=== PATIENT | female | born 1975 | race Caucasian/White ===

== ENCOUNTER 2017-07-31 17:41 | Emergency (ER) | payer OTHER ==
[~2017-07-31] VITALS: Ht 167.6 cm; Wt 66.7 kg
[~2017-07-31 17:41] MED LIST: AUGMENTIN 875-1 EACH PO
--- NOTE | 2017-07-31 17:57 | ED GI/GU/ABDOMINAL COMPLAINT ---
History of Present Illness General Chief Complaint: Female Urogenital Problems Stated Complaint: VAG BLEED/CLOTS Source: patient Exam Limitations: no limitations Vital Signs & Intake/Output Vital Signs & Intake/Output Vital Signs Date Time Temp Pulse Resp B/P B/P Pulse O2 O2 Flow FiO2 Mean Ox Delivery Rate 07/316 97 Room Air 07/31 2044 98.1 82 16 119/77 99 Room Air 07/31 1805 99.0 96 18 140/90 97 Room Air ED Intake and Output 08/01 0000 07/31 1200 Intake Total Output Total Balance Patient 147 lb Weight Allergies Coded Allergies: NO KNOWN ALLERGIES (08/19/12) Reconcile Medications Amoxicillin/Potassium Clav (Augmentin 875-125 Tablet) 1 EACH TABLET 1 TAB PO BID URINE INFECTION Ibuprofen 800 MG TABLET 1 TAB PO TID PRN vaginal bleeding Triage Nurses Notes Reviewed? yes ? N Is pt currently ? No Onset: Gradual Duration: day(s): Timing: recent history Quality/Severity: severe HPI: 42YO FEMALE presents to ED complaining of reports heavy vaginal bleeding with passage of clots. Patient has not seen an COAL YARD SUPERVISOR for two years. LMP was one week ago and normal. Feels lightheaded beginning today, worse with ambulation. Denies pain, cramps, fevers, urinary symptoms. Took test three weeks ago which was negative. Was sexually active two weeks ago, no use of protection. Past History Medical History Any Pertinent Medical History? none Neurological: NONE EENT: NONE Cardiovascular: NONE Respiratory: NONE Gastrointestinal: NONE Hepatic: NONE Renal: NONE Musculoskeletal: NONE Psychiatric: NONE Endocrine: NONE Blood Disorders: NONE Surgical History Surgical History: non-contributory Psychosocial History What is your primary language [place] Family History Hx Contributory? No Review of Systems Review of Systems Constitutional: Reports: no symptoms. EENTM: Reports: no symptoms. Respiratory: Reports: no symptoms. Cardiovascular: Reports: no symptoms. GI: Reports: see HPI. Genitourinary: Reports: see HPI. Musculoskeletal: Reports: no symptoms. Skin: Reports: no symptoms. Neurological/Psychological: Reports: no symptoms. Hematologic/Endocrine: Reports: no symptoms. Immunologic/Allergic: Reports: no symptoms. All Other Systems: Reviewed and Negative Physical Exam Physical Exam General Appearance: well developed/nourished, no apparent distress, alert, awake Head: atraumatic, normal appearance Eyes: Bilateral: normal appearance. Ears, Nose, Throat, Mouth: hearing grossly normal Neck: normal inspection, supple, full range of motion Respiratory: normal breath sounds, no respiratory distress, lungs clear Cardiovascular: regular rate/rhythm Gastrointestinal: normal bowel sounds, soft, non-tender, no organomegaly Pelvic: moderate active vaginal bleeding Back: normal inspection, normal range of motion Extremities: normal range of motion Neurologic/Psych: awake, alert, oriented x 3 Skin: intact, normal color, warm/dry Core Measures ACS in differential dx? No Sepsis Present: No Sepsis Focused Exam Completed? No Progress Differential Diagnosis: ectopic , ovarian cyst, ovarian torsion, threatened AB, uterine fibroid, dysfunctional uterine bleeding, malignancy Plan of Care: Orders Procedure Date/time Status MISTAKE 07/31 2032 Active Add-on Test (ER Only) 07/31 1909 Active HUMAN BETA HCG SCREEN 07/31 1809 Complete PARTIAL THROMBOPLASTIN TIME 08/01 1807 Complete PROTHROMBIN TIME 08/01 1807 Complete TYPE & SCREEN (NOT X-MATCH) 08/01 1807 Complete COMPREHENSIVE METABOLIC PANEL 08/01 1755 Complete CBC WITHOUT DIFFERENTIAL 08/01 1755 Complete Laboratory Tests 07/31/171809: Anion Gap 14, Estimated GFR > 60, BUN/Creatinine Ratio 14.3, Glucose 98, Calcium 9.9, Total Bilirubin 0.6, AST 20, ALT 26, Alkaline Phosphatase 61, Total Protein 8.1, Albumin 4.6, Globulin 3.5, Albumin/Globulin Ratio 1.3, Total Beta HCG NEGATIVE, PT 12.4, INR 1.14, APTT 32, CBC w Diff NO MAN DIFF REQ, RBC 4.67, MCV 92.3, MCH 30.2, MCHC 32.7 L, RDW 13.4, MPV 8.6, Gran % 53.7, Lymphocytes % 35.5 , Monocytes % 9.0, Eosinophils % 1.0, Basophils % 0.8, Absolute Granulocytes 6.1 , Absolute Lymphocytes 4.0 H, Absolute Monocytes 1.0 H, Absolute Eosinophils 0.1, Absolute Basophils 0.1 07/31/171755: Urine Color Cancelled, Urine Clarity Cancelled, Urine pH Cancelled, Ur Specific [place] Cancelled, Urine Protein Cancelled, Urine Ketones Cancelled, Urine Nitrite Cancelled, Urine Bilirubin Cancelled, Urine Urobilinogen Cancelled, Ur Leukocyte Esterase Cancelled, Ur Microscopic Cancelled, Urine Hemoglobin Cancelled, Urine Glucose Cancelled, Urine Test Cancelled Initially patient with tachycardia upon standing, medicated with IV fluid bolus. We'll obtain a transvaginal ultrasound to assess for fibroids, mass. US is WNL. H/H stable. Spoke with Dr. Blas regaring this patient. Given patient heavy vaginal bleeding she recommends either ibuprofen 800mg TID daily or OCP taper orthocyclin 2 BID day 1, 3 day 2, two day until finished. Either option is reasonable, patient can decide between the [address] Blas will follow -up with the patient in her office. Patient elects to proceed with ibuprofen 800 mg 3 times a day. She was given strict return precautions for heavy bleeding or lightheadedness. Repeat orthostatic vital signs are stable. Patient in no acute distress, nontoxic appearing. Patient agrees with plan of care. The patient was discussed with Dr. Sosa who agrees with this plan. Diagnostic Imaging: Viewed by Me: Ultrasound. Discussed w/RAD: Ultrasound. Radiology Impression: PATIENT: DEMETRI PEREA PRESENT AGE: 42 PATIENT ACCOUNT NO: [id number] : 77 LOCATION: [facility] ORDERING PHYSICIAN: Sri PERRY SERVICE DATE: 07/31/17 EXAM TYPE: US - US-TRANSVAGINAL EXAMINATIONS: ULTRASOUND PELVIC, COMPLETE AND DOPPLER INTERROGATION CLINICAL INFORMATION: Heavy bleeding. COMPARISON: None. TECHNIQUE: Transabdominal and transvaginal imaging was performed. Transvaginal imaging was performed for further evaluation of the endometrium and adnexa. Doppler interrogation spectral analysis was performed. FINDINGS: The uterus is of normal size and echogenicity measuring 9.3 x 4.4 x 6.1 cm. A regular homogeneous endometrium is identified measuring 1.1 cm. The cervical length is 2.7 cm. Both ovaries are of normal size and echogenicity. The right measures 2.4 x 1.9 x 1.8 cm for a volume of 4.2 cc. The left measures 2.8 x 1.9 x 2.1 cm for a volume of 5.8 cc. This measurement includes an approximately 16 mm cyst. There are a a few internal echoes along with a septation. Normal arterial and venous blood flow is present bilaterally. There is no pelvic free fluid. IMPRESSION: No evidence for ovarian torsion. Normal endometrium. 16 mm left ovarian cyst. DICTATED BY: Jorge A Beltrán MD DATE/TIME DICTATED:07/31/171847 FURNACE OPERATOR OIL OR GAS:[place]ON[place] DATE/ TIME TRANSCRIBED:07/31/171847 CONFIDENTIAL, DO NOT COPY WITHOUT APPROPRIATE AUTHORIZATION. <Electronically signed in Other Vendor System> SIGNED BY: Jorge A Beltrán MD 07/31/171852 Initial ED EKG: none Departure Departure Disposition: HOME OR SELF CARE Condition: Stable Clinical Impression Primary Impression: Vaginal bleeding Referrals: Wan BUCIO,Edd Unknown Additional Instructions: Begin ibuprofen 800mg three times a day for bleeding. You were given a referral to an COAL YARD SUPERVISOR to follow-up with regarding the vaginal bleeding. You may require further testing in the office. With any worsening symptoms such as increasing vaginal bleeding, abdominal pain, feeling as though you are going to pass out, dizziness, lightheadedness please return to the emergency department. Please note that there might be incidental findings in your evaluation that are unrelated to the current emergency department visit. Please notify your primary care doctor about this emergency department visit in order to obtain and review all of the testing performed so that these incidental findings can be monitored as needed. If you had an x-ray performed, please understand that some fractures may not be seen on the initial set of x-rays. If your symptoms persist you might need a repeat set of x-rays to check for such a fracture. If you had a laceration evaluated, please understand that foreign bodies such as glass or wood may not be visible to the naked eye or on plain x-rays. If the wound becomes red, swollen, increasingly more painful or if there is any drainage from the wound, please have it reevaluated by a physician for the possibility of a retained foreign body. If you're unable to follow up as outlined in the discharge instructions please return to the emergency department. Thank you for choosing the [facility] Emergency Department for your care. It was a pleasure to serve you today. Departure Forms: Customer Survey General Discharge Information Prescriptions: Current Visit Scripts Ibuprofen 1 TAB PO TID PRN vaginal bleeding #60 TAB
[2017-07-31 18:50] LABS: PT 12.4 SEC (9.4-12.5); PTT 32 SEC (25-37)
[2017-07-31 18:52] LABS: ABSOLUTE BASOPHIL COUNT 0.1 /CUMM (0.0-0.2); ABSOLUTE EOSINOPHIL COUNT 0.1 /CUMM (0.0-0.7); ABSOLUTE GRANULOCYTE CT 6.1 /CUMM (1.4-6.5); BASOPHIL % 0.8 % (0.0-2.0); GRANULOCYTE % 53.7 % (42.2-75.2); HEMATOCRIT 43.1 % (37-47); MEAN CORPUSCULAR HGB 30.2 PG (27.0-31.0); MEAN CORPUSCULAR HGB CONC 32.7 G/DL (33.0-37.0); MEAN CORPUSCULAR VOLUME 92.3 FL (81.0-99.0); MEAN PLATELET VOLUME 8.6 FL (7.4-10.4); PLATELET COUNT 320 /CUMM (130-400); RBC DISTRIBUTION WIDTH 13.4 % (11.5-14.5); RED BLOOD CELL CT 4.67 /CUMM (4.20-5.40); WHITE BLOOD CELL COUNT 11.3 /CUMM (4.8-10.8)
--- NOTE | 2017-07-31 18:53 | ULTRASOUND REPORT ---
EXAMINATIONS: ULTRASOUND PELVIC, COMPLETE AND DOPPLER INTERROGATION CLINICAL INFORMATION: Heavy bleeding. COMPARISON: None. TECHNIQUE: Transabdominal and transvaginal imaging was performed. Transvaginal imaging was performed for further evaluation of the endometrium and adnexa. Doppler interrogation spectral analysis was performed. FINDINGS: The uterus is of normal size and echogenicity measuring 9.3 x 4.4 x 6.1 cm. A regular homogeneous endometrium is identified measuring 1.1 cm. The cervical length is 2.7 cm. Both ovaries are of normal size and echogenicity. The right measures 2.4 x 1.9 x 1.8 cm for a volume of 4.2 cc. The left measures 2.8 x 1.9 x 2.1 cm for a volume of 5.8 cc. This measurement includes an approximately 16 mm cyst. There are a a few internal echoes along with a septation. Normal arterial and venous blood flow is present bilaterally. There is no pelvic free fluid. IMPRESSION: No evidence for ovarian torsion. Normal endometrium. 16 mm left ovarian cyst.
[2017-07-31] MEDS ORDERED: IBUPROFEN800 M1 PO (20:36)
[2017-07-31 20:45] VITALS: BP 119/77
== END 2017-07-31 21:27 ==
LOC: ERH 17:41
PROVIDERS: Physician Assistant
DX: N93.9 Abnormal uterine and vaginal bleeding, unspecified (principal)
CPT/HCPCS: 81025

== ENCOUNTER 2017-09-22 09:15 | Emergency (ER) | payer SELFPAY ==
[~2017-09-22] VITALS: Ht 165.1 cm; Wt 66.7 kg
[~2017-09-22 09:15] MED LIST changes: +IBUPROFEN800 M1 PO
--- NOTE | 2017-09-22 10:27 | RADIOLOGY REPORT ---
EXAMINATION: XR CHEST CLINICAL INFORMATION: Cough. Pain. Evaluate for pneumonia. COMPARISON: 12/15/2011 TECHNIQUE: 2 views of the chest were obtained. FINDINGS: The lungs are well-inflated and clear. Trachea is midline in position. No evidence of interstitial disease, focal consolidation, mass, pneumothorax or pleural effusion. The cardiomediastinal silhouette and pulmonary puneet have normal size and contour. Bones are unremarkable. The examined upper abdomen is normal. IMPRESSION: Normal chest. No evidence of pneumonia.
[2017-09-22] MEDS ORDERED: AMOXICILLIN500 M3 PO (11:21)
[2017-09-22] MEDS ORDERED: PROAIR HFA8.5 GM INH (11:21)
[2017-09-22] MEDS ORDERED: PROMETH-CODEIN 65 ML PO (11:21)
[2017-09-22] MEDS ORDERED: PREDNISONE20 M1 PO (11:21)
[2017-09-22] MEDS ORDERED: ZITHROMAX250 M2 PO (11:23)
--- NOTE | 2017-09-22 11:26 | ED INFLUENZA/URI COMPLAINT ---
History of Present Illness General Chief Complaint: Upper Respiratory Sx/Fever Stated Complaint: URI Source: patient, old records Exam Limitations: no limitations Vital Signs & Intake/Output Vital Signs & Intake/Output Vital Signs Date Time Temp Pulse Resp B/P B/P Pulse O2 O2 Flow FiO2 Mean Ox Delivery Rate 09/22 1216 98.6 106 19 138/88 97 Room Air 09/22 1150 97 09/22 1111 Room Air 09/22 0917 98.3 83 15 132/89 96 Room Air Room Air Allergies Coded Allergies: No Known Allergies (09/22/17) Reconcile Medications Albuterol Sulfate (Proair Hfa) 90 MCG HFA.AER.AD 2 PUF INH Q4-6 PRN PRN bronchitis Amoxicillin 500 MG TABLET 1 TAB PO TID sinusitis Azithromycin (Zithromax) 250 MG TABLET 1 DP PO DAILY ANTIBIOTIC, INFECTION ( Reported) 2 the first day followed by 1 for days 2-5 Prednisone 20 MG TABLET 1 TAB PO BID sinusitis Promethazine HCl/Codeine (Prometh-Codein 6.25-10 MG/5 Ml) 6.25 MG-10 MG/5 ML (5 ML) SYRUP 5-10 ML PO Q6P PRN cough Triage Note: PT TO ED FOR C/C OF INTERMITTENT PRODUCTIVE COUGH. +NASAL CONGESTION; PT IS CURRENTLY ON Z-KRISTI (3RD DAY IN). WOULD LIKE TO BE RULED OUT OF PNA DUE TO L SIDE RIB AREA PAIN. Triage Nurses Notes Reviewed? yes Onset: 3 days Duration: day(s):, constant, continues in ED Timing: recent history Severity: moderate, severe Prior Episodes/Possible Cause: illness exposure No Modifying Factors: none Associated Symptoms: chest pain, cough, muscle aches, nasal congestion, nasal drainage, sore throat LMP (ages 10-50): unknown : No Patient currently breastfeeds: No HPI: 3 days prior to admission patient complains of nasal congestion productive cough of mucoid sputum chest discomfort. she was prescribed Zithromax and still feels sick. She denies fever chills nausea vomiting diarrhea abdominal pain shortness of breath headache dysuria rash bleeding. She reports the coughing is so bad that she cannot sleep. Past History Travel History Traveled to [place] past 21 day No Medical History Any Pertinent Medical History? none Neurological: NONE EENT: NONE Cardiovascular: NONE Respiratory: NONE Gastrointestinal: NONE Hepatic: NONE Renal: NONE Musculoskeletal: NONE Psychiatric: NONE Endocrine: NONE Blood Disorders: NONE CORPORATE TRAVEL EXPERT/Reproductive: NONE Surgical History Surgical History: non-contributory Psychosocial History What is your primary language British Tobacco Use: Current Not Daily ETOH Use: denies use Illicit Drug Use: denies illicit drug use Family History Hx Contributory? No Review of Systems Review of Systems Constitutional: Reports: see HPI, malaise. EENTM: Reports: see HPI, nasal congestion. Respiratory: Reports: see HPI, cough, sputum production. Cardiovascular: Reports: see HPI, chest pain. GI: Reports: no symptoms. Genitourinary: Reports: no symptoms. Musculoskeletal: Reports: no symptoms. Skin: Reports: no symptoms. Neurological/Psychological: Reports: no symptoms. Hematologic/Endocrine: Reports: no symptoms. Immunologic/Allergic: Reports: no symptoms. All Other Systems: Reviewed and Negative Physical Exam Physical Exam General Appearance: well developed/nourished, alert, awake, anxious, mild distress Head: atraumatic, normal appearance, tenderness (frontal sinus) Eyes: Bilateral: normal appearance, PERRL, EOMI. Ears, Nose, Throat: moist mucous membrane, nasal congestion, pharyngeal erythema Neck: normal inspection, supple, full range of motion, trachea midline, lymphadenopathy (R), lymphadenopathy (L) Respiratory: normal breath sounds, chest non-tender, no respiratory distress, quiet respiration, lungs clear Cardiovascular: regular rate/rhythm, normal peripheral pulses, norml femoral pulses equa Peripheral Pulses: 4+ carotid (R), 4+ carotid (L) Gastrointestinal: normal bowel sounds, soft, non-tender, no organomegaly Back: normal inspection, normal range of motion Extremities: normal inspection, normal capillary refill, normal range of motion, no edema Neurologic/Psych: no motor/sensory deficits, awake, alert, oriented x 3, normal gait, normal mood/affect, 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 Skin: intact, normal color, warm/dry Lymphatic: adenopathy Core Measures Sepsis Present: No Sepsis Focused Exam Completed? No Progress Differential Diagnosis: influenza, otitis, pneumonia, sinusitis Plan of Care: Orders Procedure Date/time Status AEROSOL (GEN) 09/22 1150 Complete Initial ED EKG: none Departure Departure Time of Disposition: 1117 Disposition: HOME OR SELF CARE Condition: Stable Clinical Impression Primary Impression: Sinusitis Secondary Impressions: Bronchitis Referrals: Patient Has No Primary Care Dr (PCP/Family) Departure Forms: Customer Survey General Discharge Information Prescriptions: Current Visit Scripts Amoxicillin 1 TAB PO TID #30 TAB Prednisone 1 TAB PO BID #10 TAB Albuterol Sulfate (Proair Hfa) 2 PUF INH Q4-6 PRN PRN bronchitis #1 INHAL Promethazine HCl/Codeine (Prometh-Codein 6.25-10 MG/5 Ml) 5-10 ML PO Q6P PRN cough #240 ML
[2017-09-22 12:16] VITALS: BP 138/88
== END 2017-09-22 13:01 ==
LOC: ERH 09:15
DX: J40 Bronchitis, not specified as acute or chronic (principal); J32.9 Chronic sinusitis, unspecified; R07.89 Other chest pain; F17.200 Nicotine dependence, unspecified, uncomplicated
CPT/HCPCS: 71046